=== PATIENT | female | born 1945 | race Caucasian/White ===

== ENCOUNTER → 2016-11-14 | Outpatient (CLI) | payer OTHER, MEDICAID | LOC: FIMAGING 12:45 | PROVIDERS: ATTEND Family Medicine | DX: Z12.9 Encounter for screening for malignant neoplasm, site unspecified (principal); J40 Bronchitis, not specified as acute or chronic; I25.83 Coronary atherosclerosis due to lipid rich plaque; K76.0 Fatty (change of) liver, not elsewhere classified; Z87.891 Personal history of nicotine dependence ==

== ENCOUNTER → 2017-05-09 | Outpatient (CLI) | payer MEDICAID, OTHER | LOC: FIMAGING 12:01 | PROVIDERS: ATTEND Family Medicine | DX: M51.36 Other intervertebral disc degeneration, lumbar region (principal); M48.061 Spinal stenosis, lumbar region without neurogenic claudication; M12.88 Other specific arthropathies, not elsewhere classified, other specified site; M99.73 Connective tissue and disc stenosis of intervertebral foramina of lumbar region ==

== ENCOUNTER → 2017-10-10 | Outpatient (CLI) | payer OTHER, MEDICAID | LOC: FIMAGING 14:26 | PROVIDERS: ATTEND Family Medicine | DX: Z12.31 Encounter for screening mammogram for malignant neoplasm of breast (principal); R92.2 Inconclusive mammogram ==

== ENCOUNTER → 2017-10-23 | Outpatient (CLI) | payer OTHER, MEDICAID | LOC: FIMAGING 12:45 | PROVIDERS: ATTEND Family Medicine | DX: R92.8 Other abnormal and inconclusive findings on diagnostic imaging of breast (principal) ==

== ENCOUNTER → 2018-05-14 | Outpatient (CLI) | payer OTHER, MEDICAID | LOC: FIMAGING 12:58 | PROVIDERS: ATTEND Family Medicine | DX: N85.8 Other specified noninflammatory disorders of uterus (principal); R93.5 Abnormal findings on diagnostic imaging of other abdominal regions, including retroperitoneum; N95.0 Postmenopausal bleeding ==

== ENCOUNTER → 2018-05-29 | Outpatient (CLI) | payer OTHER, MEDICAID | LOC: FIMAGING 11:09 | PROVIDERS: ATTEND Family Medicine | DX: Z13.820 Encounter for screening for osteoporosis (principal); M85.89 Other specified disorders of bone density and structure, multiple sites ==

== ENCOUNTER → 2019-01-21 | Outpatient (CLI) | payer OTHER, MEDICAID | LOC: FIMAGING 14:13 ==